=== PATIENT | male | born 1940 | race Caucasian/White ===

== ENCOUNTER 2024-05-17 19:50 | Emergency (ER) | payer MEDICARE ==
[~2024-05-17] VITALS: Ht 177.8 cm; Wt 54.4 kg
[2024-05-17 20:00] VITALS: BP_SYST 124; PULSE 76; RESP 16; TEMP 98.1; O2SAT 90
[2024-05-18] MEDS: cefTRIAXone 1 GM IVPB PREMIX 50 ML IV ONE (00:45)
[2024-05-18] MEDS ORDERED: AZITHROMYCIN 500 MG/VIAL (ZITHROMAX) IV ONE (01:20)
[2024-05-18] MEDS: AZITHROMYCIN 500 MG in NS 250 ML IV ONE (01:26)
[2024-05-18 03:39] VITALS: BP_SYST 139; PULSE 83; RESP 24; TEMP 98.9; O2SAT 92
[2024-05-18 07:42] LABS: ANION GAP 9 (5-15); CALCIUM 8.7 mg/dL (8.4-11.0); CARBON DIOXIDE 26 mmol/L (23-29); CHLORIDE 104 mmol/L (98-107); CREATININE 1.61 mg/dL (0.55-1.30); GLUCOSE 122 mg/dL (74-106); POTASSIUM 3.5 mmol/L (3.5-5.1); SODIUM SERUM 139 mmol/L (136-145); UREA NITROGEN, BLOOD 30 mg/dL (8-21)
[2024-05-18 07:43] LABS: ALANINE AMINOTRANSFERASE 22 U/L (12-78); ALBUMIN 3.1 g/dL (3.4-4.8); ASPARTATE AMINOTRANSFERASE 20 U/L (10-37); BILIRUBIN,DIRECT 0.1 mg/dL (0.0-0.3); TOTAL BILIRUBIN 0.4 mg/dL (0.0-1.0); TOTAL PROTEIN, SERUM 6.6 g/dL (6.4-8.3)
[2024-05-18 09:03] LABS: BASOPHILS % (AUTO) 0.3 % (0.0-2.0); EOSINOPHILS % (AUTO) 0.1 % (0.0-4.0); HEMATOCRIT 35.8 % (36-54); HEMOGLOBIN 12.5 g/dL (14.0-18.0); LYMPHOCYTES # (AUTO) 0.6 K/uL (1.0-5.5); LYMPHOCYTES % (AUTO) 6.9 % (20.5-51.5); MEAN CORPUSCULAR HEMOGLOBIN 32 pg (27-31); MEAN CORPUSCULAR HGB CONC 35 % (32-36); MEAN CORPUSCULAR VOLUME 90 fL (79.0-98.0); MONOCYTES # (AUTO) 0.8 K/uL (0.0-1.0); MONOCYTES % (AUTO) 9.4 % (1.7-9.3); NEUTROPHILS # (AUTO) 7.3 K/uL (1.8-7.7); NEUTROPHILS % (AUTO) 83.3 % (40.0-70.0); PLATELET COUNT (AUTO) 120 K/uL (130-430); RED BLOOD CELL COUNT(AUTO) 3.97 MIL/uL (4.2-6.2); RED CELL DISTRIBUTION WIDTH 15.4 % (9.0-15.0); WHITE BLOOD COUNT (AUTO) 8.8 K/uL (4.8-10.8)
== END 2024-05-18 03:15 | disposition short-term general hospital (02) ==
LOC: SED 19:50
DX: R07.89 Other chest pain (principal); I20.9 Angina pectoris, unspecified; J18.9 Pneumonia, unspecified organism; Z20.822 Contact with and (suspected) exposure to COVID-19; Z88.0 Allergy status to penicillin; Z98.890 Other specified postprocedural states
CPT/HCPCS: 99285; 71045; 87426; 80076; 80048; 83880; 85025; 87040; 84484; 36415; 96365; 96367; J0456; J0696; 93005